=== PATIENT | male | born 1955 | race Caucasian/White ===

== ENCOUNTER 2016-10-17 06:13 | Emergency (ER) | payer OTHER ==
[~2016-10-17] VITALS: Ht 180.3 cm; Wt 84.5 kg
[2016-10-17 06:20] VITALS: BP 112/67; PULSE 94; RESP 18; O2SAT 99
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
[2016-10-17 06:44] LABS: BASOPHILS % (AUTO) 0.3 % (0-3); EOSINOPHILS % (AUTO) 3.2 % (0-5); MONOCYTES % (AUTO) 8.1 % (4-12); Mean Corpuscular Hemoglobin 30.2 pg (27.0-35.0); Mean Corpuscular Volume 89.9 fL (81-100); Platelet Count 621 bil/L (150-400)
[2016-10-17 08:55] VITALS: PULSE 90; RESP 14; O2SAT 98
== END 2016-10-17 09:13 | disposition home or self-care (01) ==
LOC: EDBD 06:13 → SED 06:13
DX: R55 Syncope and collapse (principal); T81.30XA Disruption of wound, unspecified, initial encounter; W18.39XA Other fall on same level, initial encounter; Y93.9 Activity, unspecified; Y92.9 Unspecified place or not applicable; Y99.9 Unspecified external cause status; Z85.528 Personal history of other malignant neoplasm of kidney; Z88.5 Allergy status to narcotic agent